=== PATIENT | female | born 1960 | race African-American/Black ===

== ENCOUNTER → 2016-03-18 | Day surgery (SDC) | payer OTHER ==
[~2016-03-18] VITALS: Ht 165.1 cm; Wt 97.5 kg
[~2016-03-18] MED LIST: Depo-Medrol 80mg Vial IARTIC ONE; IBUPROFEN600 MG ORAL; NORCO 10/3251 EA ORAL
[2016-03-18 09:31] VITALS: BP 146/94
--- NOTE | 2016-03-18 10:09 | Pre-Procedure Note/Attestation ---
Pre-Procedure Note/Attestation Complete Prior to Procedure Planned Procedure: not applicable Procedure Narrative: L5-S1 interlaminar lumbar epidural steroid injection under fluoroscopic guidance. Indications for Procedure Pre-Operative Diagnosis: Lumbar epidural steroid injection under fluoroscopic guidance. Attestation I attest that I discussed the nature of the procedure; its benefits; risks and complications; and alternatives (and the risks and benefits of such alternatives ), prior to the procedure, with the patient (or the patient's legal retail service representative). I attest that, if there was a reasonable possibility of needing a blood transfusion, the patient (or the patient's legal retail service representative) was given the [place] Department of Health Services standardized written summary, pursuant to the [place] Blood Safety Act ([place] Health and Safety Code # 1645, as amended). I attest that I re-evaluated the patient just prior to the surgery and that there has been no change in the patient's H&P, except as documented below: ADONIS STERLING M.D. Mar 18, 2016 10:09
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
[2016-03-18 10:40] VITALS: BP 151/82
--- NOTE | 2016-03-25 13:10 | Brief Operative Note ---
Immediate Post Operative Note Operative Note Chief Complaint: Lower back pain and bilateral back pain. Pre-op Diagnosis: Lumbar epidural steroid injection under fluoroscopic guidance. Procedure: Lumbar epidural steroid injection, L5-S1 Post-op Diagnosis: Lumbar disc displacement Post-op Diagnosis: same as pre-op Findings: consistent w/pre-op dx studies Surgeon: Adonis Donnelly MD Crts: None Additional Surgeons: None Anesthesiologist: None Anesthesia: local Specimen: none Complications: none Condition: stable Fluids: None Estimated Blood Loss: none Drains: none Packing: None Tourniquet time: 0 - min Implant(s) used?: ADONIS Dyer M.D. Mar 25, 2016 13:10
--- NOTE | 2016-03-25 13:12 | Discharge Summary ---
Discharge Summary Hospital Course Date of Admission 03/18/2016 Date of Discharge 03/18/2016 Admitting Diagnosis Lumbar disc displacement Reason for Hospitalization: short stay HPI Breann Porras is a 55 year old female who was admitted on for Back Pain Consultations none Procedures Lumbar epidural steroid injection under fluoroscopic guidance. Hospital Course short stay Discharge Discharge Disposition Patient was discharged to home Discharge Diagnoses: (1) Lumbar disc herniation with radiculopathy Discharge Instructions Discharge Instructions Follow up with: Dr. Adonis Sterling Activity: okay to shower For Surgical Patients Contact your physician for: bleeding, pain, tenderness, redness, swelling, yellowish discharge in the op. site, other ADONIS STERLING M.D. Mar 25, 2016 13:12
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
== END | disposition home or self-care (01) ==
LOC: SDS 09:02
DX: M51.16 Intervertebral disc disorders with radiculopathy, lumbar region (principal); Z87.828 Personal history of other (healed) physical injury and trauma
CPT/HCPCS: 62323; 77003; J1040; 62322

== ENCOUNTER → 2016-04-22 | Day surgery (SDC) | payer OTHER ==
[~2016-04-22] VITALS: Ht 165.1 cm; Wt 97.5 kg
[~2016-04-22] MED LIST changes: +Dexamethasone Inj PF*Surgery use* 10 MG/ML VIAL IV ONE
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
--- NOTE | 2016-04-22 08:51 | Pre-Procedure Note/Attestation ---
Pre-Procedure Note/Attestation Complete Prior to Procedure Planned Procedure: not applicable Procedure Narrative: cervical epidural steroid injection under fluoroscopic injection. Indications for Procedure Pre-Operative Diagnosis: cervical disc displacement with radiculopathy Attestation I attest that I discussed the nature of the procedure; its benefits; risks and complications; and alternatives (and the risks and benefits of such alternatives ), prior to the procedure, with the patient (or the patient's legal outbound call center representative). I attest that, if there was a reasonable possibility of needing a blood transfusion, the patient (or the patient's legal outbound call center representative) was given the [place] Department of Health Services standardized written summary, pursuant to the [place] Blood Safety Act ([place] Health and Safety Code # 1645, as amended). I attest that I re-evaluated the patient just prior to the surgery and that there has been no change in the patient's H&P, except as documented below: ADONIS STERLING M.D. Apr 22, 2016 08:51
[2016-04-22 09:07] VITALS: BP 140/77
[2016-04-22 10:10] VITALS: BP 142/86
--- NOTE | 2016-04-22 10:10 | Brief Operative Note ---
Immediate Post Operative Note Operative Note Chief Complaint: lower back pain Pre-op Diagnosis: Lumbosacral spondylosis Procedure: bilateral L4-L5 and L5-S1 intra-articular facet injections Post-op Diagnosis: same Post-op Diagnosis: same as pre-op Findings: consistent w/pre-op dx studies Surgeon: Adonis Donnelly M.D. Tool Grinder Operator: none Additional Surgeons: none Anesthesiologist: none Anesthesia: local Specimen: none Complications: none Condition: stable Fluids: none Estimated Blood Loss: none Drains: none Packing: none Tourniquet time: 0 - min Implant(s) used?: ADONIS Dyer M.D. Apr 22, 2016 10:10
--- NOTE | 2016-04-22 10:12 | Discharge Summary ---
Discharge Summary Hospital Course Date of Admission 04/22/16 Date of Discharge 04/22/16 Admitting Diagnosis lumbosacral spondylosis Reason for Hospitalization: short stay HPI Breann Porras is a 55 year old female who was admitted on for Spondylosis without myelopathy or radiculopathy Consultations none Procedures Bilateral L4-L5 and L5-S1 intra-articular facet injection under fluoroscopic guidance. Hospital Course short stay Discharge Condition Upon Discharge: stable Discharge Disposition Patient was discharged to home. Discharge Diagnoses: (1) Lumbosacral spondylosis Discharge Instructions Discharge Instructions Follow up with: Adonis Sterling M.D. Diet: regular Activity: okay to shower For Surgical Patients May shower: Yes Contact your physician for: bleeding, pain, tenderness, redness, swelling, yellowish discharge in the op. site ADONIS STERLING M.D. Apr 22, 2016 10:12
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
== END | disposition home or self-care (01) ==
LOC: SDS 08:36
DX: M47.817 Spondylosis without myelopathy or radiculopathy, lumbosacral region (principal)
CPT/HCPCS: 64493; 64494; 77003; J1040; Q9967; 64483; 64484